=== PATIENT | male | born 1970 | race Two or more races ===

== ENCOUNTER 2018-06-24 14:03 | Emergency (ER) | payer SELFPAY ==
[2018-06-24] MEDS ORDERED: INDOMETHACIN 50 MG CAPSULE PO ONE (16:28)
--- NOTE | 2018-06-24 17:07 | RADIOLOGY REPORT (SQ) ---
EXAM DESCRIPTION: FOOT RIGHT COMPLETE COMPLETED DATE/TIME: 06/24/2018 4:46 pm REASON FOR STUDY: right foot pain COMPARISON: None. NUMBER OF VIEWS: Three views. TECHNIQUE: AP, lateral and oblique radiographic images acquired of the right foot. LIMITATIONS: None. FINDINGS: MINERALIZATION: Normal. BONES: No acute fracture or dislocation. No worrisome bone lesions. JOINTS: No effusions. SOFT TISSUES: There is soft tissue swelling dorsally. OTHER: No other significant finding. IMPRESSION: Soft tissue swelling. No underlying fracture. No radiopaque foreign bodies. TECHNICAL DOCUMENTATION: JOB ID: [id number] [employer]- All Rights Reserved Reading location - IP/workstation name: [email or web address]
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
[2018-06-24 18:30] VITALS: BP 153/101
== END 2018-06-24 18:29 | disposition home or self-care (01) ==
LOC: ER 14:03
DX: M10.9 Gout, unspecified (principal); M79.671 Pain in right foot; F17.200 Nicotine dependence, unspecified, uncomplicated
CPT/HCPCS: 99283; 73630; J3490

== ENCOUNTER 2018-09-06 11:48 | Emergency (ER) | payer OTHER ==
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
[2018-09-06 14:40] LABS: ABSOLUTE BASOPHILS # (AUTO) 0.1 10^3/uL (0.0-0.2); ABSOLUTE MONOCYTES (AUTO) 0.4 10^3/uL (0.1-1.4); ABSOLUTE NEUT (AUTO) 5.3 10^3/uL (1.7-8.2); BASOPHILS % (AUTO) 1.3 % (0-2); EOSINOPHILS % (AUTO) 0.3 % (0-6); HEMATOCRIT 44.5 % (37.9-51.0); HEMOGLOBIN 14.9 g/dL (13.5-17.0); LYMPHOCYTES % (AUTO) 14.5 % (13-45); MEAN CORPUSCULAR HEMOGLOBIN 30.5 pg (27.0-33.4); MEAN CORPUSCULAR HGB CONC 33.5 g/dL (32.0-36.0); MEAN CORPUSCULAR VOLUME 91 fl (80-97); PLATELET COUNT 249 10^3/uL (150-450); RED BLOOD COUNT 4.88 10^6/uL (4.35-5.55); RED CELL DISTRIBUTION WIDTH 13.5 % (11.5-14.0); SEGMENTED NEUTROPHILS % (AUTO) 77.9 % (42-78); TOTAL CELLS COUNTED % (AUTO) 100 %; WHITE BLOOD COUNT 6.8 10^3/uL (4.0-10.5)
[2018-09-06 14:42] LABS: APPEARANCE,URINE CLEAR; BILIRUBIN,URINE NEGATIVE (NEGATIVE); COLOR,URINE YELLOW; GLUCOSE, URINE NEGATIVE (NEGATIVE); KETONES,URINE 20 mg/dL (NEGATIVE); LEUKOCYTE ESTERASE,URINE NEGATIVE (NEGATIVE); NITRITE,URINE NEGATIVE (NEGATIVE); PROTEIN,URINE NEGATIVE (NEGATIVE); URINE SPECIFIC GRAVITY 1.017; UROBILINOGEN,URINE NEGATIVE mg/dL (<2.0)
[2018-09-06 14:58] LABS: ALANINE AMINOTRANSFERASE 148 U/L (21-72); ALBUMIN 4.2 g/dL (3.5-5.0); ALKALINE PHOSPHATASE 108 U/L (38-126); ANION GAP 9 (5-19); ASPARTATE AMINO TRANSFERASE 117 U/L (17-59); BILIRUBIN,DIRECT 0.4 mg/dL (0.0-0.4); BILIRUBIN,TOTAL 0.5 mg/dL (0.2-1.3); BLOOD UREA NITROGEN 8 mg/dL (7-20); CALCIUM 9.5 mg/dL (8.4-10.2); CARBON DIOXIDE 27 mmol/L (22-30); CHLORIDE 107 mmol/L (98-107); GLUCOSE 102 mg/dL (75-110); POTASSIUM 4.6 mmol/L (3.6-5.0); SODIUM 142.8 mmol/L (137-145); TOTAL PROTEIN 7.3 g/dL (6.3-8.2)
[2018-09-06 15:14] LABS: NT PRO BNP 105 pg/mL (<125)
[2018-09-06 15:15] LABS: TROPONIN I < 0.012 ng/mL
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
[2018-09-06 18:15] VITALS: BP 150/89
== END 2018-09-06 18:13 | disposition left against medical advice (07) ==
LOC: ER 11:48
DX: R60.0 Localized edema (principal); I10 Essential (primary) hypertension; F17.200 Nicotine dependence, unspecified, uncomplicated
CPT/HCPCS: 36415; 71046; 80053; 81001; 83880; 84484; 85025; 99284

== ENCOUNTER 2018-09-30 23:25 | Emergency (ER) | payer OTHER ==
[2018-10-01 00:53] VITALS: BP 143/82
== END 2018-10-01 02:00 | disposition left against medical advice (07) ==
LOC: ER 23:25
DX: Z53.21 Procedure and treatment not carried out due to patient leaving prior to being seen by health care provider (principal); R53.83 Other fatigue

== ENCOUNTER 2018-10-01 09:22 | Emergency (ER) | payer OTHER ==
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
[2018-10-01 10:28] LABS: ABSOLUTE LYMPHOCYTES (AUTO) 0.6 10^3/uL (0.5-4.7); ABSOLUTE MONOCYTES (AUTO) 0.4 10^3/uL (0.1-1.4); ABSOLUTE NEUT (AUTO) 4.5 10^3/uL (1.7-8.2); BASOPHILS % (AUTO) 0.8 % (0-2); EOSINOPHILS % (AUTO) 0.1 % (0-6); HEMATOCRIT 40.9 % (37.9-51.0); HEMOGLOBIN 13.9 g/dL (13.5-17.0); LYMPHOCYTES % (AUTO) 10.5 % (13-45); MEAN CORPUSCULAR HEMOGLOBIN 30.5 pg (27.0-33.4); MEAN CORPUSCULAR VOLUME 90 fl (80-97); MONOCYTES % (AUTO) 6.9 % (3-13); PLATELET COUNT 189 10^3/uL (150-450); RED BLOOD COUNT 4.56 10^6/uL (4.35-5.55); RED CELL DISTRIBUTION WIDTH 13.2 % (11.5-14.0); SEGMENTED NEUTROPHILS % (AUTO) 81.7 % (42-78); TOTAL CELLS COUNTED % (AUTO) 100 %; WHITE BLOOD COUNT 5.5 10^3/uL (4.0-10.5)
[2018-10-01] MEDS ORDERED: ONDANSETRON HCL INJ/PF 4 MG/2 ML SDV IV ONE (10:41)
[2018-10-01] MEDS ORDERED: FAMOTIDINE INJ/PF 20 MG/2 ML SDV IV ONE (10:42)
[2018-10-01 10:50] LABS: ALANINE AMINOTRANSFERASE 102 U/L (21-72); ALBUMIN 4.4 g/dL (3.5-5.0); ALKALINE PHOSPHATASE 85 U/L (38-126); ANION GAP 9 (5-19); ASPARTATE AMINO TRANSFERASE 85 U/L (17-59); BILIRUBIN,DIRECT 0.3 mg/dL (0.0-0.4); BILIRUBIN,TOTAL 0.7 mg/dL (0.2-1.3); BLOOD UREA NITROGEN 16 mg/dL (7-20); CALCIUM 9.5 mg/dL (8.4-10.2); CARBON DIOXIDE 27 mmol/L (22-30); CHLORIDE 103 mmol/L (98-107); GLUCOSE 114 mg/dL (75-110); POTASSIUM 4.4 mmol/L (3.6-5.0); SODIUM 139.3 mmol/L (137-145); TOTAL PROTEIN 7.3 g/dL (6.3-8.2)
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
[2018-10-01 11:36] LABS: APPEARANCE,URINE CLEAR; BILIRUBIN,URINE NEGATIVE (NEGATIVE); COLOR,URINE YELLOW; GLUCOSE, URINE NEGATIVE (NEGATIVE); KETONES,URINE 20 mg/dL (NEGATIVE); LEUKOCYTE ESTERASE,URINE NEGATIVE (NEGATIVE); NITRITE,URINE NEGATIVE (NEGATIVE); PROTEIN,URINE NEGATIVE (NEGATIVE); URINE SPECIFIC GRAVITY 1.013; UROBILINOGEN,URINE NEGATIVE mg/dL (<2.0)
[2018-10-01 13:32] VITALS: BP 166/93
--- NOTE | 2018-10-01 18:33 | EKG REPORT ---
SEVERITY:- ABNORMAL ECG - SINUS RHYTHM LEFT ANTERIOR FASCICULAR BLOCK : Confirmed by: Vin Quach MD 01-Oct-2018 18:32:50
== END 2018-10-01 13:31 | disposition home or self-care (01) ==
LOC: ER 09:22
DX: K92.0 Hematemesis (principal); R60.0 Localized edema; R74.8 Abnormal levels of other serum enzymes; R03.0 Elevated blood-pressure reading, without diagnosis of hypertension; J02.9 Acute pharyngitis, unspecified; R06.02 Shortness of breath; F14.10 Cocaine abuse, uncomplicated; F17.200 Nicotine dependence, unspecified, uncomplicated; R53.83 Other fatigue; R55 Syncope and collapse; R20.0 Anesthesia of skin
CPT/HCPCS: 93005; 99283; 96374; 96375; 36415; 83735; 85025; 80053; 81001; 84484; 83880; 71046; 93010; J2405; S0028

== ENCOUNTER 2019-01-01 14:14 | Emergency (ER) | payer OTHER ==
[2019-01-01 14:21] VITALS: BP 136/82
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
== END 2019-01-01 15:08 | disposition home or self-care (01) ==
LOC: ER 14:14
DX: M10.9 Gout, unspecified (principal); M79.674 Pain in right toe(s)
CPT/HCPCS: 99283

== ENCOUNTER 2019-02-12 04:54 | Emergency (ER) | payer OTHER ==
--- NOTE | 2019-02-12 06:48 | RADIOLOGY REPORT (SQ) ---
EXAM DESCRIPTION: CT CERVICAL SPINE WITHOUT IV CONTRAST COMPLETED DATE/TME: 02/12/2019 05:38 CLINICAL HISTORY: 48 years, Male, Trauma COMPARISON: None. TECHNIQUE: Axial CT images of the cervical spine were obtained without contrast. Sagittal and coronal reformats were performed. DLP 450 Images stored on PACS. All CT scanners at this facility use dose modulation, iterative reconstruction, and/or weight based dosing when appropriate to reduce radiation dose to as low as reasonably achievable (ALARA). [facility]: Dose Right [facility]: CareDose [facility]: Dose Right [facility]: Teradose 4D [facility]: [employer] LIMITATIONS: None. FINDINGS: The alignment of the cervical spine is satisfactory. There is no acute fracture or subluxation. The vertebral heights are maintained. The prevertebral soft tissues are normal odontoid process is intact. 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 The craniocervical junction is intact. There is mild disc space narrowing with marginal osteophytes at C6-C7. IMPRESSION: No acute fracture or subluxation. TECHNICAL DOCUMENTATION: Quality ID # 436: Final reports with documentation of one or more dose reduction techniques (e.g., Automated exposure control, adjustment of the mA and/or kV according to patient size, use of iterative reconstruction technique) copyright 2011 [employer]- All Rights Reserved
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
--- NOTE | 2019-02-12 06:50 | RADIOLOGY REPORT (SQ) ---
EXAM DESCRIPTION: CT HEAD WITHOUT IV CONTRAST COMPLETED DATE/TME: 02/12/2019 05:38 CLINICAL HISTORY: 48 years, Male, Trauma COMPARISON: None. TECHNIQUE: Axial CT images of the brain were obtained without contrast. Sagittal and coronal reformats were performed. [facility] 1017 Images stored on PACS. All CT scanners at this facility use dose modulation, iterative reconstruction, and/or weight based dosing when appropriate to reduce radiation dose to as low as reasonably achievable (ALARA). [facility]: Dose Right [facility]: CareDose [facility]: Dose Right [facility]: Teradose 4D [facility]: [employer] LIMITATIONS: None. FINDINGS: Is mild soft tissue swelling along the left frontal scalp. There is no acute cortical infarct, hemorrhage, mass, edema, hydrocephalus, or extra-axial fluid collection. The prince-white matter differentiation is preserved. There is mucosal thickening of the paranasal sinuses. There is partial opacification of the right mastoid air cells. There is no acute fracture. IMPRESSION: No acute intracranial abnormality. Mild soft tissue swelling along the left frontal scalp TECHNICAL DOCUMENTATION: Quality ID # 436: Final reports with documentation of one or more dose reduction techniques (e.g., Automated exposure control, adjustment of the mA and/or kV according to patient size, use of iterative reconstruction technique) copyright 2010 [employer]- All Rights Reserved
[2019-02-12 07:35] VITALS: BP 127/81
== END 2019-02-12 07:25 ==
LOC: ER 04:54
DX: S09.93XA Unspecified injury of face, initial encounter (principal); F10.929 Alcohol use, unspecified with intoxication, unspecified; M79.89 Other specified soft tissue disorders; W19.XXXA Unspecified fall, initial encounter; F17.200 Nicotine dependence, unspecified, uncomplicated
CPT/HCPCS: 70450; 72125; 99284

== ENCOUNTER 2019-03-11 09:46 | Emergency (ER) | payer OTHER ==
[2019-03-11] MEDS ORDERED: NALOXONE HCL INJ/PF 0.4 MG/1 ML SDV ONE (09:53)
[2019-03-11] MEDS ORDERED: NALOXONE HCL INJ 2 MG/2 ML DISP.SYRIN ONE ×2 (09:58→16:37)
[2019-03-11 10:28] LABS: APPEARANCE,URINE CLEAR; BILIRUBIN,URINE NEGATIVE (NEGATIVE); COLOR,URINE YELLOW; GLUCOSE, URINE NEGATIVE (NEGATIVE); KETONES,URINE TRACE mg/dL (NEGATIVE); LEUKOCYTE ESTERASE,URINE NEGATIVE (NEGATIVE); NITRITE,URINE NEGATIVE (NEGATIVE); PROTEIN,URINE NEGATIVE (NEGATIVE); URINE SPECIFIC GRAVITY 1.013; UROBILINOGEN,URINE NEGATIVE mg/dL (<2.0)
[2019-03-11 10:43] LABS: URINE BARBITURATES SCREEN NEGATIVE; URINE BENZODIAZEPINES SCREEN NEGATIVE; URINE COCAINE SCREEN NEGATIVE; URINE MARIJUANA (THC) SCREEN NEGATIVE; URINE METHADONE SCREEN NEGATIVE; URINE PHENCYCLIDINE SCREEN NEGATIVE
[2019-03-11 10:44] LABS: ABSOLUTE LYMPHOCYTES (AUTO) 0.6 10^3/uL (0.5-4.7); ABSOLUTE MONOCYTES (AUTO) 0.4 10^3/uL (0.1-1.4); ABSOLUTE NEUT (AUTO) 7.7 10^3/uL (1.7-8.2); BASOPHILS % (AUTO) 0.2 % (0-2); HEMOGLOBIN 16.2 g/dL (13.5-17.0); MEAN CORPUSCULAR HGB CONC 33.8 g/dL (32.0-36.0); MEAN CORPUSCULAR VOLUME 86 fl (80-97); MONOCYTES % (AUTO) 4.6 % (3-13); PLATELET COUNT 225 10^3/uL (150-450); RED BLOOD COUNT 5.58 10^6/uL (4.35-5.55); RED CELL DISTRIBUTION WIDTH 14.2 % (11.5-14.0); SEGMENTED NEUTROPHILS % (AUTO) 88.2 % (42-78); TOTAL CELLS COUNTED % (AUTO) 100 %; WHITE BLOOD COUNT 8.7 10^3/uL (4.0-10.5)
[2019-03-11 10:51] LABS: ALBUMIN 4.4 g/dL (3.5-5.0); ALKALINE PHOSPHATASE 91 U/L (38-126); ANION GAP 10 (5-19); ASPARTATE AMINO TRANSFERASE 37 U/L (17-59); BILIRUBIN,DIRECT 0.2 mg/dL (0.0-0.4); BILIRUBIN,TOTAL 0.5 mg/dL (0.2-1.3); BLOOD UREA NITROGEN 11 mg/dL (7-20); CALCIUM 9.3 mg/dL (8.4-10.2); CARBON DIOXIDE 26 mmol/L (22-30); CHLORIDE 103 mmol/L (98-107); GLUCOSE 100 mg/dL (75-110); POTASSIUM 4.4 mmol/L (3.6-5.0); TOTAL PROTEIN 7.8 g/dL (6.3-8.2)
[2019-03-11 10:56] LABS: ALCOHOL < 10 mg/dL (NONE DETECTED)
[2019-03-11] MEDS ORDERED: RINGERS SOLUTION,LACTATED 1,000 ML IV ONE ×2 (14:00→16:25)
[2019-03-11] MEDS ORDERED: NALOXONE HCL INJ/PF 0.4 MG/1 ML SDV IV ONE ×2 (14:01→16:23)
[2019-03-11] MEDS ORDERED: NALOXONE HCL INJ 2 MG/2 ML DISP.SYRIN IV ONE (14:10)
[2019-03-11 15:01] LABS: CREATINE KINASE 261 U/L (55-170)
[2019-03-11 15:02] LABS: ACETAMINOPHEN < 10 ug/mL (10-30); SALICYLATE < 1.0 mg/dL (2.0-20.0)
--- NOTE | 2019-03-11 15:02 | EKG REPORT ---
SEVERITY:- ABNORMAL ECG - SINUS RHYTHM LEFT ANTERIOR FASCICULAR BLOCK PROBABLE RIGHT VENTRICULAR HYPERTROPHY : Confirmed by: Vin Quach MD 11-Mar-2019 15:02:02
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
[2019-03-12] MEDS: BUSPIRONE HCL 10 MG TABLET PO SCH (18:54)
[2019-03-12] MEDS: VENLAFAXINE HCL 37.5 MG CAP.SR.24H PO SCH (18:54)
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
[2019-03-13] MEDS ORDERED: INDOMETHACIN 25 MG CAPSULE PO ONE (10:28)
[2019-03-13] MEDS: VENLAFAXINE HCL 37.5 MG CAP.SR.24H PO SCH ×2 (10:55→18:15)
[2019-03-13] MEDS: BUSPIRONE HCL 10 MG TABLET PO SCH ×2 (10:55→18:14)
--- NOTE | 2019-03-13 13:20 | PSYCHOLOGICAL NOTE ---
Psych Note - Psych Note Date seen by psych provider: 03/13/19 Time seen by psych provider: 13:17 Psych Note: Followed up with referrals. [facility] "being reviewed" Jessica Aguilar "on wait list" [facility] "not reviewed, yet" It could be tomorrow before referral will be reviewed [facility] "we are actually capped right now"
[2019-03-14] MEDS: VENLAFAXINE HCL 37.5 MG CAP.SR.24H PO SCH (10:00)
[2019-03-14] MEDS: BUSPIRONE HCL 10 MG TABLET PO SCH (10:00)
[2019-03-14 10:26] VITALS: BP 121/73
--- NOTE | 2019-03-14 12:11 | PSYCHOLOGICAL NOTE ---
Psych Note - Psych Note Date seen by psych provider: 03/14/19 Psych Note: DSM Diagnosis: Per history, Depression Per history, Anxiety Persistent Complex Bereavement Disorder Impression/Plan: Patient is recommended to continue under IVC. Patient has been accepted to [facility]; transportation has been requested. Dr. Lu was consulted on the care and management of this patient; attending physician is in agreement with recommendations and disposition.
--- NOTE | 2019-03-14 12:18 | ER Document Report ---
Doctor's Note Notes: 03/14/19 12:15 assessed patient. Patient without any complaints. Lungs clear to auscultation bilaterally. Regular rate and rhythm. Patient is currently awaiting placement per psychiatric recommendations.
== END 2019-03-14 12:43 ==
LOC: ER 09:46
DX: T42.6X2A Poisoning by other antiepileptic and sedative-hypnotic drugs, intentional self-harm, initial encounter (principal); F15.10 Other stimulant abuse, uncomplicated; F10.129 Alcohol abuse with intoxication, unspecified; F32.9 Major depressive disorder, single episode, unspecified; Z79.899 Other long term (current) drug therapy; Z63.4 Disappearance and death of family member
CPT/HCPCS: 93005; 96376; 99285; 96361; 96374; 36415; 82962; 80307 ×4; 82550; 83605; 83735; 85025; 80053; 81001; 93010; J3490 ×4; J2310 ×2; J7120

== ENCOUNTER 2019-06-20 13:41 | Emergency (ER) | payer OTHER ==
[2019-06-20] MEDS ORDERED: NALOXONE HCL INJ/PF 0.4 MG/1 ML SDV IV ONE ×2 (13:55)
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
[2019-06-20] MEDS ORDERED: NALOXONE HCL INJ 2 MG/2 ML DISP.SYRIN IV ONE ×3 (14:18→14:46)
[2019-06-20 14:36] LABS: HEMATOCRIT 47.8 % (37.9-51.0); HEMOGLOBIN 16.5 g/dL (13.5-17.0); MEAN CORPUSCULAR HEMOGLOBIN 29.5 pg (27.0-33.4); MEAN CORPUSCULAR HGB CONC 34.5 g/dL (32.0-36.0); MEAN CORPUSCULAR VOLUME 86 fl (80-97); RED BLOOD COUNT 5.59 10^6/uL (4.35-5.55); RED CELL DISTRIBUTION WIDTH 14.5 % (11.5-14.0); WHITE BLOOD COUNT 8.3 10^3/uL (4.0-10.5)
[2019-06-20 14:39] LABS: APPEARANCE,URINE CLEAR; BILIRUBIN,URINE NEGATIVE (NEGATIVE); COLOR,URINE YELLOW; GLUCOSE, URINE NEGATIVE (NEGATIVE); KETONES,URINE NEGATIVE (NEGATIVE); LEUKOCYTE ESTERASE,URINE NEGATIVE (NEGATIVE); NITRITE,URINE NEGATIVE (NEGATIVE); PROTEIN,URINE NEGATIVE (NEGATIVE); URINE SPECIFIC GRAVITY 1.012; UROBILINOGEN,URINE NEGATIVE mg/dL (<2.0)
--- NOTE | 2019-06-20 14:47 | PSYCHOLOGICAL NOTE ---
Psych Note - Psych Note Date seen by psych provider: 06/20/19 Time seen by psych provider: 15:30 Psych Note: Patient is currently unable to engage in evaluation. It is unclear at this time intent behind his current overdose. Patient was placed on 24-hour petition for evaluation. Patient needs to be fully assessed as he was sent inpatient psychiatric treatment February 2019 and at that time there was significant concern for both mental health and substance abuse. Patient will be seen and evaluated once he is able to engage.
[2019-06-20 14:53] LABS: ALBUMIN 4.6 g/dL (3.5-5.0); ALKALINE PHOSPHATASE 94 U/L (38-126); ANION GAP 9 (5-19); ASPARTATE AMINO TRANSFERASE 32 U/L (17-59); BILIRUBIN,TOTAL 0.5 mg/dL (0.2-1.3); BLOOD UREA NITROGEN 13 mg/dL (7-20); CALCIUM 9.3 mg/dL (8.4-10.2); CARBON DIOXIDE 24 mmol/L (22-30); CHLORIDE 107 mmol/L (98-107); GLUCOSE 107 mg/dL (75-110); POTASSIUM 4.5 mmol/L (3.6-5.0); TOTAL PROTEIN 7.7 g/dL (6.3-8.2)
[2019-06-20 14:55] LABS: ACETAMINOPHEN < 10 ug/mL (10-30); ALCOHOL < 10 mg/dL (NONE DETECTED); SALICYLATE < 1.0 mg/dL (2.0-20.0)
[2019-06-20 14:56] LABS: URINE BARBITURATES SCREEN NEGATIVE; URINE BENZODIAZEPINES SCREEN NEGATIVE; URINE COCAINE SCREEN NEGATIVE; URINE MARIJUANA (THC) SCREEN NEGATIVE; URINE METHADONE SCREEN NEGATIVE; URINE PHENCYCLIDINE SCREEN NEGATIVE
[2019-06-20 14:58] LABS: ABSOLUTE LYMPHOCYTES# (MANUAL) 1.3 10^3/uL (0.5-4.7); ABSOLUTE MONOCYTES # (MANUAL) 0.6 10^3/uL (0.1-1.4); BASOPHILS % (MANUAL) 1 % (0-2); EOSINOPHILS % (MANUAL) 0 % (0-6); LYMPHOCYTES % (MANUAL) 13 % (13-45); MONOCYTES % (MANUAL) 7 % (3-13); SEGMENTED NEUTROPHILS % (MAN) 76 % (42-78); TOTAL CELLS COUNTED 100
[2019-06-20 15:03] LABS: ANISOCYTOSIS SLIGHT; PLATELET CLUMPS PRESENT; PLATELET COMMENT ADEQUATE; PLATELET COUNT 232 10^3/uL (150-450)
--- NOTE | 2019-06-20 17:47 | EKG REPORT ---
SEVERITY:- ABNORMAL ECG - SINUS RHYTHM LEFT ANTERIOR FASCICULAR BLOCK CONSIDER RIGHT VENTRICULAR HYPERTROPHY : Confirmed by: Vin Quach MD 20-Jun-2019 17:47:11
--- NOTE | 2019-06-21 10:34 | ER Document Report ---
Doctor's Note Notes: 06/21/19 10:31 Patient is a 48-year-old male whose about a month ago came in yesterday for overdose on sleeping pills. He was given multiple doses of Narcan at that time as he had pinpoint pupils and they were unsure of the source. Drug screen is unremarkable aside from amphetamines. Patient states that this was a suicide attempt as he has been depressed since his passed. He has no visual or auditory hallucinations. He has been able to eat and drink, but has not been eating much here. He is urinating normally. Patient states that he feels fatigued and tired, but otherwise has no other complaints at this time. Denies any headache, fever, neck pain, URI, sore throat, chest pain, palpitat ions, syncope, cough, shortness of breath, wheeze, dyspnea, abdominal pain, nausea/vomiting/diarrhea, urinary retention, dysuria, hematuria, or rash. General: A&Ox3. Answers questions appropriately. Does appear fatigued, but responds appropriately. Heart: RRR Lungs: CTAB Psych: Flat affect A/P: Continue monitoring and med rec's per MH. Waiting on further rec's from MH team. Normal diet
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
--- NOTE | 2019-06-22 00:50 | ER Document Report ---
Doctor's Note Notes: 06/22/19 00:49 Chart reviewed, patient resting quietly 06/22/19 07:35 Patient slept all night out incident. Sarah lehman did contact the nurse here in preparation for patient to be transferred there.
[2019-06-22 10:57] VITALS: BP 110/60
--- NOTE | 2019-06-22 14:29 | ER Document Report ---
Doctor's Note Notes: 06/22/19 14:28 I am rounding on this 48-year-old male who tried to overdose on sleeping pills on his 's anniversary of her . Patient is much more responsive than he was yesterday. He is feeling well and has no concerns or complaints. He is able to eat and drink without difficulty. He is urinating normally and having normal bowel movements. No SI or HI at this time. No visual auditory hallucinations. Denies any headache, fever, neck pain, URI, sore throat, chest pain, palpitations, syncope, cough, shortness of breath, wheeze, dyspnea, abdominal pain, nausea/vomiting/diarrhea, urinary retention, dysuria, hematuria, or rash. General: A&Ox3. Answers questions appropriately. Does appear fatigued, but responds appropriately. Heart: RRR Lungs: CTAB Psych: Flat affect A/P: Patient to be transferred to [facility] for inpatient . Transport has arrived via law enforcement. Vitals are acceptable. Patient has no new concerns or complaints. Patient stable for transfer. Discharge - Discharge Clinical Impression: Overdose Qualifiers: Encounter type: initial encounter Injury intent: undetermined intent Qualified Code(s): T50.904A - Poisoning by unspecified drugs, medicaments and biological substances, undetermined, initial encounter Condition: Stable Disposition: PSYCH HOSP/UNIT
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
== END 2019-06-22 14:48 ==
LOC: ER 13:41
DX: T50.904A Poisoning by unspecified drugs, medicaments and biological substances, undetermined, initial encounter (principal); X58.XXXA Exposure to other specified factors, initial encounter
CPT/HCPCS: 93005; 96376; 99285; 96374; 36415; 80307 ×4; 85025; 80053; 81001; 93010; J2310

== ENCOUNTER 2019-11-02 03:59 | Inpatient (IN) | payer SELFPAY ==
[2019-11-02 04:28] LABS: HEMATOCRIT 44.9 % (37.9-51.0); HEMOGLOBIN 14.8 g/dL (13.5-17.0); MEAN CORPUSCULAR HEMOGLOBIN 29.8 pg (27.0-33.4); MEAN CORPUSCULAR HGB CONC 32.8 g/dL (32.0-36.0); MEAN CORPUSCULAR VOLUME 91 fl (80-97); PLATELET COUNT 320 10^3/uL (150-450); RED BLOOD COUNT 4.94 10^6/uL (4.35-5.55); RED CELL DISTRIBUTION WIDTH 14.6 % (11.5-14.0); WHITE BLOOD COUNT 14.6 10^3/uL (4.0-10.5)
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
[2019-11-02 04:45] LABS: ALKALINE PHOSPHATASE 110 U/L (38-126); ANION GAP 17 (5-19); ASPARTATE AMINO TRANSFERASE 329 U/L (17-59); BILIRUBIN,TOTAL 0.2 mg/dL (0.2-1.3); BLOOD UREA NITROGEN 17 mg/dL (7-20); CALCIUM 8.6 mg/dL (8.4-10.2); CARBON DIOXIDE 16 mmol/L (22-30); CHLORIDE 106 mmol/L (98-107); CREATINE KINASE 305 U/L (55-170); GLUCOSE 191 mg/dL (75-110); POTASSIUM 4.2 mmol/L (3.6-5.0); TOTAL PROTEIN 6.6 g/dL (6.3-8.2)
[2019-11-02 04:48] LABS: ABSOLUTE LYMPHOCYTES# (MANUAL) 7.4 10^3/uL (0.5-4.7); ABSOLUTE MONOCYTES # (MANUAL) 1.3 10^3/uL (0.1-1.4); BAND NEUTROPHILS % (MANUAL) 3 % (3-5); BASOPHILS % (MANUAL) 0 % (0-2); EOSINOPHILS % (MANUAL) 1 % (0-6); LYMPHOCYTES % (MANUAL) 42 % (13-45); MONOCYTES % (MANUAL) 9 % (3-13); SEGMENTED NEUTROPHILS % (MAN) 36 % (42-78); TOTAL CELLS COUNTED 100
[2019-11-02 04:49] LABS: ANISOCYTOSIS SLIGHT; BURR CELLS SLIGHT; PLATELET COMMENT ADEQUATE; POIKILOCYTOSIS SLIGHT; TOXIC VACUOLATION PRESENT
[2019-11-02 04:53] LABS: AMORPHOUS SEDIMENT,URINE TRACE /HPF; APPEARANCE,URINE CLOUDY; BILIRUBIN,URINE NEGATIVE (NEGATIVE); COLOR,URINE YELLOW; GLUCOSE, URINE 50 mg/dL (NEGATIVE); KETONES,URINE NEGATIVE (NEGATIVE); LEUKOCYTE ESTERASE,URINE NEGATIVE (NEGATIVE); NITRITE,URINE NEGATIVE (NEGATIVE); PROTEIN,URINE 100 mg/dL (NEGATIVE); URINE SPECIFIC GRAVITY 1.013; UROBILINOGEN,URINE NEGATIVE mg/dL (<2.0)
--- NOTE | 2019-11-02 04:53 | RADIOLOGY REPORT (SQ) ---
EXAM: CT Head Without Intravenous Contrast EXAM DATE/TIME: 11/02/2019 4:28 AM CLINICAL HISTORY: The patient is 48 years old and is Male; ROSC, hanging TECHNIQUE: Axial computed tomography images of the head/brain without intravenous contrast. Sagittal and coronal reformatted images were created and reviewed. This CT exam was performed using one or more of the following dose reduction techniques: automated exposure control, adjustment of the mA and/or kV according to patient size, and/or use of iterative reconstruction technique. COMPARISON: CT brain from 02/12/2019 FINDINGS: ARTIFACTS: The exam is suboptimal secondary to motion artifact. BRAIN: There is apparent sulcal effacement bilaterally. In addition, there is decreased visualization of prince-white matter differentiation. No significant midline shift. Suprasellar cistern is patent. VENTRICLES: Unremarkable. No ventriculomegaly. BONES/JOINTS: Unremarkable. No acute fracture. SOFT TISSUES: Unremarkable. SINUSES: There is minimal mucosal thickening in the paranasal sinuses. No air-fluid levels. MASTOID AIR CELLS: There is opacification of the right mastoid air cells, similar to the prior study. The left mastoid air cells remain clear. IMPRESSION: Findings suggest diffuse cerebral edema.
--- NOTE | 2019-11-02 05:05 | RADIOLOGY REPORT (SQ) ---
CLINICAL INDICATION: suicide by hanging. TECHNIQUE: A single portable AP view was obtained of the chest at 0446 hours. Supine imaging COMPARISON: October 01, 2018. FINDINGS: The cardiomediastinal silhouette is normal. The lungs are of low volume but grossly clear. No evidence of effusion or pneumothorax. Old posttraumatic change left hemithorax. Gaseous distention of the stomach.. IMPRESSION: No evidence of active intrathoracic disease. Lungs of low volume but grossly clear
[2019-11-02 05:07] LABS: URINE BARBITURATES SCREEN NEGATIVE; URINE BENZODIAZEPINES SCREEN NEGATIVE; URINE COCAINE SCREEN NEGATIVE; URINE MARIJUANA (THC) SCREEN NEGATIVE; URINE METHADONE SCREEN NEGATIVE; URINE PHENCYCLIDINE SCREEN NEGATIVE
--- NOTE | 2019-11-02 05:13 | RADIOLOGY REPORT (SQ) ---
EXAM: CT Cervical Spine Without Intravenous Contrast EXAM DATE/TIME: 11/02/2019 4:24 AM CLINICAL HISTORY: The patient is 48 years old and is Male; ROSC, hanging TECHNIQUE: Axial computed tomography images of the cervical spine without intravenous contrast. Sagittal and coronal reformatted images were created and reviewed. This CT exam was performed using one or more of the following dose reduction techniques: automated exposure control, adjustment of the mA and/or kV according to patient size, and/or use of iterative reconstruction technique. COMPARISON: CT cervical spine from 11/12/2018 FINDINGS: VERTEBRAE: No acute fractures visualized in the cervical spine. Vertebral body alignment is well-maintained. DISCS/SPINAL CANAL/NEURAL FORAMINA: No significant intervertebral disc height loss. No spinal canal narrowing appreciated. Mild right-sided neural foraminal narrowing visualized at C6-7. OTHER BONES: There is a minimally displaced fracture through the right posterior aspect of the hyoid bone (series 4, image 40; series 200, image 15). This was not present on the prior study. SOFT TISSUES: No significant prevertebral soft tissue swelling. LUNG APICES: Minimal dependent atelectasis in the lung apices. OTHER: Laryngeal mask airway in place. IMPRESSION: 1. No acute fractures of the cervical spine. 2. Minimally displaced fracture of the hyoid bone, which is likely acute. THIS REPORT CONTAINS FINDINGS THAT MAY BE CRITICAL TO PATIENT CARE: Findings discussed with Dr. JOHN CARCAMO by Dr. Kathryn Garland on 11/02/2019 4:12 AM CDT . The results were acknowledged and understood.
[2019-11-02] MEDS ORDERED: HEPARIN SOD (PORCINE) 5,000 UNIT/ML 1 ML VIAL SUBCUT SCH (06:00)
--- NOTE | 2019-11-02 06:56 | Progress Note ---
Provider Note Provider Note: I was called by Dr. lopes in the ED to admit Mr.Jose Miller to the ICU. Patient is a 48-year-old male with a history of depression who has been off his medications for an unknown period of time, and multiple suicide attempts. According to the report I received from the ED physician the patient had an argument with his girlfriend and advised her that he was going to kill himself by hanging, she did not believe him. She subsequently went outside to find Mr. Millre and found him hanging from a tree. She called EMS, when EMS arrived they and the Disaster Or Damage Control Specialist removed patient from the tray and he was found to be in asystole, CPR was initiated, he was given 1 epinephrine after 15 minutes of CPR patient had R0SC with a systolic blood pressure in the 160s and a heart rate in the 100s. He was intubated with an LMA and taken to the ED. Upon arrival to the ED patient was not neurologically intact although he was breathing on his own, had no gag or cough, pupils were fixed and dilated. CT of the head showed diffuse cerebral edema. C-spine CT showed fracture of the hyoid bone. Dr. lopes was asked to exchange the LMA for an endotracheal tube. I went to the ED to evaluate the patient, upon my arrival and ETT was in place, with the O2 saturations began to drop rapidly into the 30s heart rate dropped from 140 to the 20s patient had copious amounts of emesis in the ETT. I asked Dr. lopes to assess that the tube is correctly placed and found that it was in the esophagus. I then asked him to remove the ETT and attempt reintubation at this time the patient was in PEA arrest CPR initiated 2 rounds of epi and 1 bicarb was given. Again ETT was found to be in the esophagus. I myself then removed the ETT and successfully tracheal intubated with good color change on the CO2 detector. Patient remained in PEA arrest. Given the futility code was called, and patient at 0553.
[2019-11-02 07:01] VITALS: BP 157/100
[2019-11-02] MEDS ORDERED: EPINEPHRINE INJ 1 MG/10 ML DISP.SYRIN ONE (07:53)
[2019-11-02] MEDS ORDERED: SODIUM BICARBONATE 8.4% INJ 50 MEQ/50 ML DISP.SYRIN ONE (07:53)
[2019-11-02] MEDS ORDERED: SUCCINYLCHOLINE CHLORIDE INJ 200 MG/10 ML VIAL ONE (10:17)
== END 2019-11-02 08:47 | disposition left against medical advice (07) | DRG 922 ==
LOC: ER 03:59 → EH 05:07 → UNDOADMIN 05:29 → EH 05:29 → ER 09:31
PROVIDERS: ADMIT Hospitalist; ATTEND Hospitalist
PROC: 5A1935Z Respiratory Ventilation, Less than 24 Consecutive Hours (ICD-10-PCS; principal; 2019-11-02)
PROC: 0BH17EZ Insertion of Endotracheal Airway into Trachea, Via Natural or Artificial Opening (ICD-10-PCS; 2019-11-02)
DX: T71.162A Asphyxiation due to hanging, intentional self-harm, initial encounter (principal); S12.8XXA Fracture of other parts of neck, initial encounter; F32.0 Major depressive disorder, single episode, mild; Y93.89 Activity, other specified; F15.10 Other stimulant abuse, uncomplicated; R60.0 Localized edema; I10 Essential (primary) hypertension; Z63.0 Problems in relationship with spouse or partner; Z91.5 Personal history of self-harm; Z91.14 Patient's other noncompliance with medication regimen; Y92.89 Other specified places as the place of occurrence of the external cause
CPT/HCPCS: 36415; 51702; 70450; 71045; 72125; 80053; 80307; 81001; 82550; 84484; 85025; 99285; J0171; J0330; J3490